=== PATIENT | male | born 1975 | race Caucasian/White ===

== ENCOUNTER 2016-11-15 18:40 | Emergency (ER) | payer MEDICAID ==
--- NOTE | 2016-11-15 19:47 | ED Physician Chart ---
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 noted rt 5th toe pain in afternoon...when he stopped to check sees a blister at rt 5th toe medial aspect. noted some drainage ?pus. no fever. pt had DM says its usually well ctrld. has HTN hx also...bp high in ed dw pt...pt says he did take his bp meds this am...advised he see pmd tmrw and get rechk. pt otw feels ok. no chills. no weakness. toe did not hurt before today. no leg pain or edema. no red streaks up leg. no sob, no cp , no cough. Allergies:: Allergies Allergy/AdvReac Type Severity Reaction Status Date / Time No Known Allergies Allergy Verified 11/15/16 19:05 Vitals:: Vital Signs - 8 hr 11/15/16 19:00 Temp 98.1 F HR 96 RR 18 BP 182/95 O2 Sat % 97 Historian:: Patient Review of Systems - Review of Systems General/Constitutional: No fever, No chills, No weight loss, No weakness, No diaphoresis, No edema, No loss of appetite Skin: No skin lesions, No rash, No bruising Head: No headache, No light-headedness Eyes: No loss of vision, No pain, No diplopia ENT: No earache, No nasal drainage, No sore throat, No tinnitus Neck: No neck pain, No swelling, No thyromegaly, No stiffness, No mass noted Cardio Vascular: No chest pain, No palpitations, No PND, No orthopnea, No edema Pulmonary: No SOB, No cough, No sputum, No wheezing GI: No nausea, No vomiting, No diarrhea, No pain, No melena, No hematochezia, No constipation, No hematemesis G/U: No dysuria, No frequency, No hematuria Musculoskeletal: No bone or joint pain, No back pain, No muscle pain, Other (rt 5th toe pain) Endocrine: No polyuria, No polydipsia Psychiatric: No prior psych history, No depression, No anxiety, No suicidal ideation Hematopoietic: No bruising, No lymphadenopathy Allergic/Immuno: No urticaria, No angioedema Neurological: No syncope, No focal symptoms, No weakness, No paresthesia, No headache, No seizure, No dizziness, No confusion, No vertigo Past Medical History - Past Medical History Past Medical History: HTN, DM Social History: Non Smoker, No Alcohol, No Drug Use, Medication: Reviewed Family Medical History - Family Member Father Hx Family Hypertension: Yes Physical Exam - Physical Examination General/Constitutional: Awake, Well-developed, well-nourished, Alert, No distress, GCS 15, Non-toxic appearing, Ambulatory Other Gen/Cons comments:: mod obese. conversive in nad. wn/wh. nontoxic. Head: Atraumatic Eyes: Lids, conjuctiva normal, PERRL, EOMI Skin: Nl inspection, No rash, No skin lesions, No ecchymosis, Well hydrated, No lymphadenopathy ENMT: External ears, nose nl, Nasal exam nl, Lips, teeth, gums nl Neck: Nontender, Full ROM w/o pain, No JVD, No nuchal rigidity, No bruit, No mass, No stridor Respiratory: Nl effort/Exclusion, Clear to Auscultation, No Wheeze/Rhonchi/Rales Cardio Vascular: RRR, No murmur, gallop, rubs, NL S1 S2 GI: No tenderness/rebounding/guarding, No organomegaly, No hernia, Normal BS's, Nondistended, No mass/bruits, No McBurney tenderness : No CVA tenderness Extremities: No tenderness or effusion, Full ROM, normal strength in all extremities, No edema, Normal digits & nails Other Extremities comments:: b legs no edema, no rash. rt 5th toe has a small clear superficiaal blister at medial aspect ...it comes adjacent to nailbed but doesnt appear to be a ingrown toenail. pt has b deg of 5th toenail w only a vvery small residual nail remains. flex/ext ok. no digit edema. no red streaks. ok rom, cap refill brisk. Neuro/Psych: Alert/oriented, DTR's symmetric, Normal sensory exam, Normal motor strength, Judgement/insight normal, Mood normal, Normal gait, No focal deficits Misc: normal gait, Normal back, No paraspinal tenderness ED Septic Shock - . Is Septic Shock (SBP<90, OR Lactate>4 mmol\L) present?: No - <6hrs of presentation: Vital Signs: Vital Signs - 8 hr 11/15/16 19:00 Temp 98.1 F HR 96 RR 18 BP 182/95 O2 Sat % 97 Reassessment (Disposition) - Reassessment Reassessment:: pt fsbs =440. insulin 10 u sq given. pt was offered a hospital admission although his toe is not very impressive...looks much more like a blister than a deep infection of any kind. he refuses admission. cx obtained from toe. pt requests pain med for toe. i advised tylenol..pt asks for something stronger. rx ultracet #10. explained to pt about his high bp and rs=993...advise tighter ctrl of both and see pmd tmrw for these.. abx rx keflex and levoquin (for pseudomonal protection) seems like overcaution as blister is not impressive. no deep wound etc.. Reassessment Condition:: Improved - Diagnosis Diagnosis:: 1 blister on rt 5th toe 2 poorly ctrld HTN 3 DM poorly ctrld - Aftercare/Follow up Instructions Aftercare/Follow-Up Instructions:: Counseled pt regarding lab results/diagnosis & need follow up Notes:: dw pt...need to get HTN improved...need to keep DM well ctrld. will rx keflex for toe as precaution. pt to see pmd tmrw for wound rechk and bp chk. - Patient Disposition Discharge/Transfer:: Home Condition at Disposition:: Unchanged
[2016-11-15] MEDS ORDERED: INSULIN ASPART, RECOMBINANT 100 UNITS/ML SUBQ ONE ×2 (19:54→19:58)
== END 2016-11-15 21:50 | disposition home or self-care (01) ==
LOC: ER 18:40
DX: S60.426A Blister (nonthermal) of right little finger, initial encounter (principal); I10 Essential (primary) hypertension; E11.9 Type 2 diabetes mellitus without complications; X58.XXXA Exposure to other specified factors, initial encounter; Y93.89 Activity, other specified; Y92.89 Other specified places as the place of occurrence of the external cause; Y99.8 Other external cause status
CPT/HCPCS: 99283; 96372; 36416 ×3; 82948 ×3; 87070; J1815; Z7502; Z7610